=== PATIENT | male | born 1960 | race Caucasian/White ===

== ENCOUNTER 2018-06-07 17:17 | Inpatient (IN) | payer BC ==
[~2018-06-07 17:17] MED LIST: Ampicillin 1 GM in Sodium Chloride 0.9% 50 ML IV SCH; Sodium Chloride 0.9% 10 ML SDV IV PRN; Sodium Chloride 0.9% 10 ML Syringe FLUSH PRN; Sodium Chloride 0.9% 2.5 ML Syringe FLUSH PRN
[2018-06-07] MEDS: Ampicillin 1 GM in Sodium Chloride 0.9% 50 ML IV SCH ×2 (18:53→23:50)
[2018-06-07] MEDS: Lactated Ringers 1,000 ML IV SCH (23:53)
[2018-06-08] MEDS: Ampicillin 1 GM in Sodium Chloride 0.9% 50 ML IV SCH ×4 (05:41→22:51)
--- NOTE | 2018-06-08 10:05 | PCM.PREANE ---
Preanesthetic Assessment - Anesthesia/Transfusion/Family Hx Anesthesia History: Prior Anesthesia Without Reaction (hernia and skin graft) Family History of Anesthesia Reaction: No Transfusion History: No Prior Transfusion(s) - Review of Systems General: No Symptoms Pulmonary: No Symptoms Cardiovascular: No Symptoms Gastrointestinal: No Symptoms Neurological: No Symptoms Other: Reports: None - Physical Assessment NPO Status Date: 06/07/18 O2 Sat by Pulse Oximetry: 97 Respiratory Rate: 18 Vital Signs: Last Vital Signs Temp 98.1 F 06/08/18 08:00 Pulse 53 L 06/08/18 08:00 Resp 18 06/08/18 08:00 BP 164/84 H 06/08/18 08:00 Pulse Ox 97 06/08/18 08:00 Height: 6 ft 1 in Weight: 93.44 kg ASA Class: 2 (smoker) Mental Status: Alert & Oriented x3 Airway Class: Mallampati = 1 Dentition: Reports: Dentures (full upper, partial lower) ROM/Head Extension: Full Lungs: Clear to Auscultation, Normal Respiratory Effort Cardiovascular: Regular Rate, Regular Rhythm - Lab Values: Laboratory Last Values POC Glucose 115 mg/dL (60-110) H 06/08/18 04:18 - Allergies Allergies/Adverse Reactions: Allergies Allergy/AdvReac Type Severity Reaction Status Date / Time iodine Allergy Facial Verified 06/07/18 17:57 Swelling shellfish derived Allergy Facial Verified 06/07/18 17:56 Swelling - Blood Blood Available: No - Anesthesia Plan Pre-Op Medication Ordered: None - Acknowledgements Anesthesia Type Planned: Spinal Pt an Appropriate Candidate for the Planned Anesthesia: Yes Alternatives and Risks of Anesthesia Discussed w Pt/Guardian: Yes Pt/Guardian Understands and Agrees with Anesthesia Plan: Yes Additional Comments: admitted last night, needs H&P, on tobramycin and ampicillin overnight, home meds are flomax and hydrocodone. allergy is iodine, no labs other than u/a, is a smoker, 6'1". 120 kg PLAN: spinal with sedation PreAnesthesia Questionnaire Gastrointestinal History: Reports: Hiatal Hernia Genitourinary History: Reports: BPH - Past Surgical History GI Surgical History: Reports: Hernia Repair/Other - SUBSTANCE USE Smoking Status *Q: Current Every Day Smoker Tobacco Use Within Last Twelve Months: Other (See Below) Recreational Drug Use History: No - HOME MEDS Home Medications: Home Meds Aspirin [Adult Low Dose Aspirin EC] 81 mg PO DAILY 06/07/18 [History] Tamsulosin HCl 1 cap PO DAILY 06/07/18 [History] - CURRENT (IN HOUSE) MEDS Current Meds: Current Medications Lactated Ringer's (Ringers, Lactated) 1,000 mls @ 100 mls/hr IV ASDIRECTED [facility] Last Admin: 06/07/18 23:53 Dose: 100 mls/hr Ampicillin Sodium 1 gm/ Sodium (Chloride) 50 mls @ 100 mls/hr IV Q6H [facility] Last Admin: 06/08/18 05:41 Dose: 100 mls/hr Tobramycin 120 mg/ Sodium (Chloride) 103 mls @ 103 mls/hr IV Q12H [facility] Last Admin: 06/08/18 06:17 Dose: 103 mls/hr Sodium Chloride (Saline Flush) 10 ml FLUSH ASDIRECTED PRN PRN Reason: Keep Vein Open Sodium Chloride (Saline Flush) 2.5 ml FLUSH ASDIRECTED PRN PRN Reason: Keep Vein Open Sodium Chloride (Normal Saline) 10 ml IV ASDIRECTED PRN PRN Reason: IV Use Discontinued Medications Ampicillin Sodium 1 gm/ Sodium (Chloride) 50 mls @ 100 mls/hr IV Q6H [facility] Last Admin: 06/07/18 19:47 Dose: Not Given Tobramycin 120 mg/ Sodium (Chloride) 103 mls @ 103 mls/hr IV Q12H [facility] Last Admin: 06/07/18 19:47 Dose: Not Given
[2018-06-08] MEDS: Lactated Ringers 1,000 ML IV SCH (10:12)
[2018-06-08] MEDS ORDERED: fentaNYL 100 MCG/2 ML SDV ONE ×3 (14:53→15:31)
[2018-06-08] MEDS ORDERED: Midazolam 1 MG/ML 2 ML SDV ONE (14:53)
[2018-06-08] MEDS ORDERED: Ondansetron 4 MG/2 ML SDV ONE (14:53)
[2018-06-08] MEDS ORDERED: Propofol 200 MG/20 ML SDV ONE ×3 (14:53→15:59)
[2018-06-08] MEDS ORDERED: Morphine 10 MG/ML Syringe ONE (15:11)
[2018-06-08] MEDS ORDERED: Labetalol 100 MG/20 ML MDV ONE (15:32)
[2018-06-08] MEDS ORDERED: Sugammadex Sodium 200 MG/2 ML VIAL ONE (16:19)
[2018-06-08] MEDS ORDERED: Belladonna Alkaloids/Opium 16.2-30 MG Supp RECTAL PRN (16:57)
[2018-06-08] MEDS ORDERED: Meperidine PF 25 MG/ML Syringe IVPUSH ONE (16:59)
[2018-06-08] MEDS ORDERED: hydrALAZINE 20 MG/ML SDV ONE (17:13)
--- NOTE | 2018-06-08 17:43 | PCM.POSTAN ---
POST ANESTHESIA ASSESSMENT - MENTAL STATUS Mental Status: Alert, Oriented - VITAL SIGNS Blood Pressure: 150/82 (After tx) - RESPIRATORY Respiratory Status: Respiratory Rate WNL, Airway Patent, O2 Saturation Stable - CARDIOVASCULAR CV Status: Pulse Rate WNL, Blood Pressure Stable - GASTROINTESTINAL GI Status: No Symptoms - PAIN Pain Score: 0 - POST OP HYDRATION Hydration Status: Adequate & Stable
--- NOTE | 2018-06-08 17:44 | OR ---
SURGEON: Jakub Lehman M.D. DATE OF PROCEDURE: 06/08/2018 PREOPERATIVE DIAGNOSES: 1. Benign prostatic hyperplasia. 2. Urinary retention. POSTOPERATIVE DIAGNOSES: 1. Benign prostatic hyperplasia. 2. Urinary retention. OPERATION: TURP. DESCRIPTION OF PROCEDURE: The patient was given general anesthesia, placed in dorsal lithotomy position, prepped and draped in sterile drapes. The 28-[place] resectoscope was introduced into the bladder without difficulty. Urethral meatotomy had to be done to allow the resectoscope to go through the meatus. The resection was started with the floor of the colon laterally and anteriorly. At the end of the resection, all prostatic chips were removed. Both ureteral orifices were intact. The area of the external sphincter was intact. A 22 three-way Raygoza catheter with 8 mL in the balloon was left in the bladder connected to TUR drip. Estimated blood loss was 350 mL. The patient tolerated the procedure well and was moved to recovery room in good condition. MONTSERRAT / BINDU /[id number]
[2018-06-08] MEDS: D5 1/2 NS w/ 20 mEq/L KCl 1,000 ML IV SCH (19:04)
[2018-06-08] MEDS: Docusate Sodium 100 MG Cap PO SCH (20:47)
[2018-06-08] MEDS: Bacitracin Oint 28.35 GM Tube TOP SCH (22:51)
--- NOTE | 2018-06-09 04:53 | PCM48HPAN ---
Post Anesthesia Note - EVALUATION WITHIN 48HRS OF ANESTHETIC Vital Signs in Normal Range: Yes Patient Participated in Evaluation: Yes Respiratory Function Stable: Yes Airway Patent: Yes Cardiovascular Function Stable: Yes Hydration Status Stable: Yes Pain Control Satisfactory: Yes Nausea and Vomiting Control Satisfactory: Yes Mental Status Recovered: Yes Resp Rate: 16 Blood Pressure: 150/82 (After tx)
[2018-06-09] MEDS: D5 1/2 NS w/ 20 mEq/L KCl 1,000 ML IV SCH (05:05)
[2018-06-09] MEDS: Ampicillin 1 GM in Sodium Chloride 0.9% 50 ML IV SCH ×4 (06:03→23:11)
[2018-06-09] MEDS: Bacitracin Oint 28.35 GM Tube TOP SCH ×3 (06:04→21:18)
[2018-06-09] MEDS: Docusate Sodium 100 MG Cap PO SCH ×2 (08:36→21:18)
[2018-06-09] MEDS: Acetaminophen 325 MG Tab PO PRN ×2 (09:12→16:38)
--- NOTE | 2018-06-09 09:50 | PCM.SN ---
- Free Text/Narrative Note: doing well vs stable, bld pressure nl
[2018-06-10] MEDS: Ampicillin 1 GM in Sodium Chloride 0.9% 50 ML IV SCH ×2 (05:43→12:15)
[2018-06-10] MEDS: Bacitracin Oint 28.35 GM Tube TOP SCH (05:48)
[2018-06-10] MEDS: Docusate Sodium 100 MG Cap PO SCH (08:52)
--- NOTE | 2018-06-10 13:38 | DISCH ---
DATE OF DISCHARGE: 06/10/2018 PRIMARY CARE PHYSICIAN: None PCP A 57-year-old was seen in the office in urinary retention, was found to have a great big prostate. He was admitted to the hospital, had IV antibiotics on Thursday. He was taken to the operating room on Thursday of this week. He had a TURP. Postoperatively, he did well. The vital signs stayed stable. The hemoglobin was normal and so were the electrolytes. On the second postop day, the catheter was taken out. He was able to void and the urine is reasonably clear. His pathology is still pending. He is sent home. No medications. He comes back as needed. MONTSERRAT / BINDU /[id number]
== END 2018-06-10 12:10 | disposition home or self-care (01) | DRG 482 ==
LOC: MW.SDS 17:17 → MW.MS 17:40 → MW.SDS 06-08 00:01 → MW.MS 06-08 14:03
PROVIDERS: ADMIT Urology; ATTEND Urology
PROC: 0VB08ZZ Excision of Prostate, Via Natural or Artificial Opening Endoscopic (ICD-10-PCS; principal; 2018-06-08)
DX: N40.1 Benign prostatic hyperplasia with lower urinary tract symptoms (principal); R33.8 Other retention of urine; R39.11 Hesitancy of micturition; F17.200 Nicotine dependence, unspecified, uncomplicated; Z88.8 Allergy status to other drugs, medicaments and biological substances; Z91.013 Allergy to seafood; Z79.899 Other long term (current) drug therapy; Z79.82 Long term (current) use of aspirin; Z86.010 Personal history of colon polyps
CPT/HCPCS: 00914; 36415; 80051; 82962; 84132; 84295; 85025; 88305; A9270-GY; J0290; J0360; J2175; J2250; J2270; J2405; J2704; J3010; J3260; J3480; J3490; J7030; J7050; J7120